=== PATIENT | female | born 1965 | race Hispanic/Latino ===

== ENCOUNTER 2017-05-05 08:08 | Day surgery (SDC) | payer OTHER, BC ==
[2017-05-05 08:21] VITALS: BMI 43.7
[2017-05-05] MEDS ORDERED: Lactated Ringer's 1,000 ML IV ONE ×2 (09:00→14:50)
--- NOTE | 2017-05-05 11:02 | CARD ---
APPROVED REPORT EKG Measurement Heart [id number] CT [id number] <Conclusion> Normal sinus rhythm Normal ECG
[2017-05-05] MEDS ORDERED: MethylPREDNISolone Depo 40 mg/ml Inj ONE (11:19)
[2017-05-05] MEDS ORDERED: Bupivacaine 0.5% Inj(30mL) ONE (11:20)
[2017-05-05] MEDS ORDERED: Lidocaine 1% Inj (20ml) ONE (11:20)
[2017-05-05] MEDS ORDERED: Iohexol 300 10 ML ONE ×2 (11:20→11:22)
[2017-05-05] MEDS ORDERED: Iohexol 300 100 ML IJ ONE (11:23)
[2017-05-05] MEDS ORDERED: Neostigmine 1:1000 (1 mg/ml) Inj ONE (12:34)
[2017-05-05] MEDS ORDERED: Chlorhexidine Gluconate 2OZ GEL TP ONE (12:35)
[2017-05-05] MEDS ORDERED: Lidocaine 4% (Laryng-O-Jet) Kit MM ONE (12:40)
[2017-05-05] MEDS ORDERED: Rocuronium 10 mg/ml (5 ml) ONE (12:40)
[2017-05-05] MEDS ORDERED: Succinylcholine 200 mg/10 ml Inj IV ONE (12:40)
[2017-05-05] MEDS ORDERED: Propofol 10 mg/ml Inj (20 ML) ONE (12:40)
[2017-05-05] MEDS ORDERED: Midazolam 2 MG/2 ML VIAL ONE (12:45)
[2017-05-05] MEDS ORDERED: Dexamethasone 4 mg/1 ml ONE (12:54)
[2017-05-05] MEDS ORDERED: MethylPREDNISolone Depo 40 mg/ml Inj IM ONE (13:15)
[2017-05-05] MEDS ORDERED: Morphine 1 mg/ml preservative-free Inj(Duramorph) IV ONE (13:15)
[2017-05-05] MEDS ORDERED: Iohexol 240 100 ML IJ ONE (13:15)
[2017-05-05] MEDS ORDERED: Bupivacaine 0.5% 50 ML IJ ONE (13:15)
[2017-05-05] MEDS ORDERED: Morphine 1 mg/ml preservative-free Inj(Duramorph) ONE (13:19)
--- NOTE | 2017-05-05 13:24 | RAD ---
HISTORY: preop COMPARISON: No prior. TECHNIQUE: Chest PA and lateral FINDINGS: LUNGS: Minor bibasilar atelectasis PLEURA: No significant pleural effusion identified. No pneumothorax apparent. CARDIOVASCULAR: Normal. OSSEOUS STRUCTURES: Minor multilevel degenerative spondylosis of the thoracic spine VISUALIZED UPPER ABDOMEN: Normal. OTHER FINDINGS: None. IMPRESSION: Minor bibasilar atelectasis
--- NOTE | 2017-05-05 13:25 | CP.SDSHP ---
Same Day Surgery H & P - History Proposed Procedure: Right hip intra-articular steroid injection using flouroscopy under anesthesia Pre-Op Diagnosis: Right hip osteoarthritis - Previous Medical/Surgical History Misc: Other (Lumbar HNP and spinal stenosis, Morbid obesity) Pain: 8.Very Severe Previous Surgical History: ectopic - Allergies Allergies: Allergies No Known Allergies Allergy (Verified 05/05/17 08:21) - Current Medications Current Medications: see med rec - Physical Exam General Appearance: No acute distress Vital Signs: Vital Signs 05/05/17 05/05/17 09:00 09:29 Temperature 97.6 F Pulse Rate 90 90 Respiratory 18 Rate Blood Pressure 153/72 H O2 Sat by Pulse 97 Oximetry Neuro: WNL Heart: WNL Lungs: WNL GI: WNL - {Optional Preform as Required} Abdomen: WNL Integument: WNL Ortho: Other (RLE: Pain with ROM of hip, gross NVI distally, motor 5/5) - Impression Impression: Patient is a 51 y/o female with severe right hip pain which has failed conservative management with NSAID's and PT over the past 3 years. The pain has progressively worsened over the past few months hindering her ADL's, especially walking. The patient is mobidly obese. The decision was made to proceed with an intra-articular steriod injection of the hip for management. Pt. Evaluated Today:Candidate for Anesthesia & Procedure: Yes (Risk/Clayton discussed with pt in detail, she agrees to proceed) - Date & Time Date: 05/05/17 Time: 12:00 Short Stay Discharge - Short Stay Discharge Admitting Diagnosis/Reason for Visit: M25.551 Disposition: HOME/ ROUTINE Referrals: Mati Rao III, MD [Primary Care Provider] -
[2017-05-05] MEDS ORDERED: Lactated Ringer's 500 ML IV ONE (13:32)
[2017-05-05] MEDS: HYDROmorphone 0.5 mg/0.5 ml ISec IVP PRN ×4 (13:35→14:15)
--- NOTE | 2017-05-05 13:35 | PCM.SURG1 ---
Surgeon's Initial Post Op Note - Surgeon's Notes Surgeon: [employer]alen [employer] Repairer: Marj Rudolph Type of Anesthesia: General Endo Anesthesia Administered By: Dr Karlos Espinosa Pre-Operative Diagnosis: Severe hypertrophic O/A R hip. Morbid obesity Operative Findings: hypertrophic O/A R Hip Post-Operative Diagnosis: as above. morbid obesity Operation Performed: Arthrogram r Hip. intraraticular injection R hip. positioning of fluor/interpretation of video Specimen/Specimens Removed: synvial fluid Estimated Blood Loss: EBL {In ML}: 3 Blood Products Given: N/A Drains Used: No Drains Post-Op Condition: Good Date of Surgery/Procedure: 05/05/17 Time of Surgery/Procedure: 13:10 (time in room/anaesthesia indcution time 12:28)
[2017-05-05] MEDS ORDERED: Lactated Ringer's 1,000 ML IV SCH (13:45)
--- NOTE | 2017-05-05 14:43 | RAD ---
PROCEDURE: Intraoperative Fluoroscopy. HISTORY: RT. HIP INJECTION FINDINGS: Fluoroscopic assistance was provided. 34.9 seconds fluoroscopy time utilized during this procedure. Radiation dose = 5.68 mGy. Please refer to the operative report from PRESTON Mendoza.
[2017-05-05 15:23] VITALS: RESP 18
[2017-05-05 16:58] VITALS: BP 128/70; PULSE 73; TEMP 98.2; O2SAT 97
--- NOTE | 2017-05-06 16:59 | OP ---
PROCEDURE DATE: 05/05/2017 LOCATION: [facility]. PREOPERATIVE DIAGNOSES: 1. Severe hypertrophic osteoarthritis of the right hip. 2. Morbid obesity. OPERATIVE FINDINGS: Hypertrophic osteoarthritis of the right hip with flexion contracture and morbid obesity. POSTOPERATIVE DIAGNOSES: 1. Severe hypertrophic osteoarthritis of the right hip. 2. Morbid obesity. SURGEON: Mati Rao MD MEDICAL LAB SCIENTIST: Sidra Newsome, certified registered nursing social media assistant. Completion of the operative goal could not have been achieved without the assistance of Sidra Newsome, certified registered nursing social media assistant. ANESTHESIA: General tracheal anesthesia. OPERATION PERFORMED: 1. Arthrogram right hip. 2. Placement of the arthrography needle. 3. Intra-articular injection of the hip. 4. Manipulation of the right hip under anesthesia. 5. Positioning of fluoroscope interpretation of video images. SPECIMENS REMOVED: Synovial fluid. BLOOD LOSS: Approximately 3 mL. BLOOD PRODUCTS GIVEN: None. DRAINS: No drains. POSTOPERATIVE CONDITION: Stable. TIME IN THE ROOM: 12:28. INCISION TIME: 1310 hours. OPERATIVE INDICATIONS: Taylor Su is a 51-year-old woman who is morbidly obese who presents with severe pain and restricted range of motion of the hip. The patient can no longer withstand the discomfort, total hip replacement is imminent, but a conservative approach consisting of weight loss and intra-articular injection first is discussed. PROCEDURE IN DETAIL: After having obtained informed consent, after the satisfactory induction of general endotracheal anesthesia by Dr. Bangura, after having identified side, site, and procedure and critical pause/time-out, the right lower extremity was prepped and free draped in usual fashion for the intra-articular injection and arthrogram of the right hip. Under the surgeon's direction, the fluoroscope was positioned, video images were generated, therapeutic decisions were made therefrom. The femoral artery was palpated and marked with indelible marker. The pannus was reflected out of the way. The anterior superior iliac spine was identified, and under the surgeon's direction, the fluoroscope was positioned. The hip joint was localized with a radiopaque instrument. The long spinal needle was introduced and is positioned both on AP and frog lateral views. Radiopaque contrast was introduced into the hip joint. Arthrogram having been accomplished, aspiration was accomplished. At this point in time, the position of the needle was found to be acceptable and a solution of Depo-Medrol, Duramorph, and Marcaine was introduced. Again the hip was manipulated under anesthesia. There was found to be evidence of a flexion contracture with marked arthritic change and restricted motion in essentially all planes. Compression dressing was applied. The patient was transferred from the operating table to the stretcher having tolerated the procedure well. Mati Rao MD
== END 2017-05-05 16:40 | disposition home or self-care (01) ==
LOC: H.OPSURG 08:08
PROVIDERS: ATTEND Orthopaedic Surgery
DX: M16.11 Unilateral primary osteoarthritis, right hip (principal); E66.01 Morbid (severe) obesity due to excess calories; G47.33 Obstructive sleep apnea (adult) (pediatric)
CPT/HCPCS: 20610; 27275; 71046; 76000; 93005; J0330; J0690; J1030; J1100; J1170; J1885; J2001; J2250; J2270; J2405; J2704; J2710; J2765; J3010; J7030; J7040; J7120; Q9966; Q9967

== ENCOUNTER 2017-06-23 06:21 | Inpatient (IN) | payer OTHER ==
[2017-06-21 11:46] VITALS: BMI 42.9
[2017-06-23 06:57] LABS: BASO # 0.1 K/uL (0.0-0.2); EOS # 0.1 K/uL (0.0-0.7); EOS % 2.1 % (0.0-4.0); HEMOGLOBIN 14.6 g/dL (12.0-16.0); LYMPH # 1.8 K/uL (1.0-4.3); LYMPH % 29.7 % (20.0-40.0); MEAN CELL VOLUME 95.5 fl (81.0-99.0); MEAN CORPUSCULAR HEMOGLOBIN 32.5 pg (27.0-31.0); MEAN CORPUSCULAR HGB CONC 34.1 g/dL (33.0-37.0); MONO # 0.8 K/uL (0.0-0.8); MONO % 13.2 % (0.0-10.0); NEUT # 3.2 K/uL (1.8-7.0); RBC 4.5 Mil/uL (3.80-5.20); RED CELL DISTRIBUTION WIDTH 12.6 % (11.5-14.5)
[2017-06-23] MEDS ORDERED: Succinylcholine 200 mg/10 ml Inj IV ONE (07:18)
[2017-06-23] MEDS ORDERED: Lidocaine 4% (Laryng-O-Jet) Kit MM ONE (07:18)
[2017-06-23] MEDS ORDERED: Vecuronium 10 mg Inj ONE (07:18)
--- NOTE | 2017-06-23 07:19 | CP.PCM.HP ---
History of Present Illness - History of Present Illness History of Present Illness: Chief Complaint: Right Hip Pain HPI: 51 y/o lady , no significant PMH except for Degenerative Joint and Disc Dis , came in for scheduled Right THR. The patient states that for the past 3 years , she has been having right hip pain w/c progressively worsened. For the Past 1 year , she has been experiencing severe pain requiring almost daily intake of analgesic - Ultram. She went to see Dr Paula and imagings done showed Severe OA . She had Intra-articular injections and Physical therapy however despite these her pain continued. She was then advised surgery. Present on Admission - Present on Admission Any Indicators Present on Admission: No Review of Systems - Review of Systems All systems: reviewed and no additional remarkable complaints except - Constitutional Constitutional: absent: Chills, Fever - EENT Eyes: absent: Change in Vision Ears: absent: Decreased Hearing, Ear Discharge Nose/Mouth/Throat: absent: Epistaxis, Nasal Congestion, Nasal Discharge - Cardiovascular Cardiovascular: absent: Chest Pain, Claudication, Pain Radiating to Arm/Neck/Jaw , Lightheadedness, Orthopnea, Palpitations, Pedal Edema - Respiratory Respiratory: absent: Cough, Dyspnea, Hemoptysis, Dyspnea on Exertion - Gastrointestinal Gastrointestinal: absent: Abdominal Pain, Nausea, Vomiting - Genitourinary Genitourinary: absent: Dysuria, Hematuria, Pyuria, Nocturia - Musculoskeletal Musculoskeletal: Arthralgias, Limited Range of Motion (right hip). absent: Back Pain - Integumentary Integumentary: absent: Pruritus, Rash, Skin Ulcer, Sores - Neurological Neurological: absent: Dizziness, Focal Weakness, Headaches, Loss of Vision, Paresthesias - Endocrine Endocrine: absent: Polydipsia, Polyphagia, Polyuria - Hematologic/Lymphatic Hematologic: absent: Easy Bleeding, Easy Bruising Past Patient History - Infectious Disease Hx of Infectious Diseases: None - Tetanus Immunizations Tetanus Immunization: Unknown - Past Medical History & Family History Past Medical History?: Yes Past Family History: Reviewed and not pertinent - Past Social History Smoking Status: Former Smoker Chewing Tobacco Use: No Cigar Use: No Occupation: works for [employer] Alcohol: None Home Situation {Lives}: With Family - CARDIAC Hx Cardiac Disorders: No - PULMONARY Hx Respiratory Disorders: No - NEUROLOGICAL Hx Neurological Disorder: No - HEENT Hx HEENT Problems: No - RENAL Hx Chronic Kidney Disease: No - ENDOCRINE/METABOLIC Hx Endocrine Disorders: No - HEMATOLOGICAL/ONCOLOGICAL Hx Blood Disorders: No Hx Blood Transfusion Reaction: No - INTEGUMENTARY Hx Dermatological Problems: No - MUSCULOSKELETAL/RHEUMATOLOGICAL Hx Musculoskeletal Disorders: No Hx Arthritis: Yes Hx Degenerative Joint Disease: Yes Hx Herniated Disk: Yes (4) Hx Osteoarthritis: Yes Hx Spinal Stenosis: Yes - GASTROINTESTINAL Hx Gastrointestinal Disorders: Yes Hx Gastritis: Yes - GENITOURINARY/GYNECOLOGICAL Hx Genitourinary Disorders: No - PSYCHIATRIC Hx Psychophysiologic Disorder: No - SURGICAL HISTORY Hx Surgeries: Yes Other/Comment: epidural,ectopic - ANESTHESIA Hx Anesthesia: Yes Hx Anesthesia Reactions: No Hx Malignant Hyperthermia: No Has any member of the family had a problem w/ anesthesia?: No Meds Allergies/Adverse Reactions: Allergies Allergy/AdvReac Type Severity Reaction Status Date / Time No Known Allergies Allergy Verified 06/23/17 06:44 Physical Exam - Constitutional Appears: Well, Non-toxic, No Acute Distress - Head Exam Head Exam: ATRAUMATIC, NORMAL INSPECTION, NORMOCEPHALIC - Eye Exam Eye Exam: EOMI, Normal appearance, PERRL Pupil Exam: NORMAL ACCOMODATION - ENT Exam ENT Exam: Mucous Membranes Moist, Normal External Ear Exam - Neck Exam Neck exam: Positive for: Full Rom. Negative for: Meningismus - Respiratory Exam Respiratory Exam: NORMAL BREATHING PATTERN. absent: Rales, Wheezes, Respiratory Distress - Cardiovascular Exam Cardiovascular Exam: REGULAR RHYTHM, +S1, +S2 - GI/Abdominal Exam GI & Abdominal Exam: Normal Bowel Sounds, Soft. absent: Tenderness - Extremities Exam Extremities exam: Positive for: normal capillary refill, pedal pulses present. Negative for: calf tenderness Additional comments: Pain on ROM of the right Hip - Back Exam Back exam: FULL ROM. absent: CVA tenderness (L), CVA tenderness (R) - Neurological Exam Neurological exam: Alert, CN II-XII Intact, Oriented x3, Reflexes Normal - Psychiatric Exam Psychiatric exam: Normal Affect, Normal Mood - Skin Skin Exam: Dry, Intact, Normal Color, Warm Results - Vital Signs Recent Vital Signs: Last Vital Signs Temp 98 F 06/23/17 07:00 Pulse 87 06/23/17 07:00 Resp BP 137/79 06/23/17 07:00 Pulse Ox 95 06/23/17 07:00 - Labs Result Diagrams: 06/23/17 06:45 Labs: Laboratory Results - last 24 hr 06/23/17 06:45 WBC 6.0 RBC 4.50 Hgb 14.6 Hct 42.9 MCV 95.5 MCH 32.5 H MCHC 34.1 RDW 12.6 Plt Count 259 MPV 9.0 Neut % (Auto) 54.0 Lymph % (Auto) 29.7 Ferry % (Auto) 13.2 H Eos % (Auto) 2.1 Baso % (Auto) 1.0 Neut # (Auto) 3.2 Lymph # (Auto) 1.8 [place]erry # (Auto) 0.8 Eos # (Auto) 0.1 Baso # (Auto) 0.1 Reviewed labs done as outpt - EKG Data EKG Interpreted by: Myself EKG shows normal: Sinus rhythm Rate: Normal Assessment & Plan (1) Primary osteoarthritis of right hip Status: Acute (2) Morbid obesity with BMI of 40.0-44.9, adult Status: Chronic (3) UTI (urinary tract infection) Status: Resolved (4) DVT prophylaxis Status: Acute - Assessment and Plan (Free Text) Assessment: 51 y/o lady with hx of Degen Joint and Disc Disease , came in for scheduled Right THR. Pt has Severe Primary OA of the right hip , and failed outpatient conservative treatment for OA. (1) Primary osteoarthritis of right hip Status: Acute Severe Right hip pain , requiring daily pain meds, pain on ROM, pain on ambulating worseing this past year. Plan for Right THR Ortho: DR Rao Pt medically optimize for the surgery as outpt, low cardiac risk Pain mgt DVT proph post op PT/OT consults (2) Morbid obesity with BMI of 40.0-44.9, adult Status: Chronic (3) UTI (urinary tract infection), treated Status: Resolved pt just completed 1 wk for antibiotic treatment ( cipro) for UTI (4) DVT prophylaxis Status: Acute start Lovenox post op Decision To Admit - Pt Status Changed To: Hospital Disposition Of: Inpatient - Admit Certification Admit to Inpatient:: After my assessment, the patient will require hospitalization for at least two midnights. This is because of the severity of symptoms shown, intensity of services needed, and/or the medical risk in this patient being treated as an outpatient. - . Bed Request Type: Med/Surg Admitting Physician: Rosemary Contreras
[2017-06-23] MEDS ORDERED: Phenylephrine 10 mg/ml Inj ONE (07:21)
[2017-06-23] MEDS ORDERED: Etomidate 20 mg/10ml Inj IV ONE (07:21)
[2017-06-23] MEDS ORDERED: Midazolam 2 MG/2 ML VIAL ONE (07:24)
[2017-06-23] MEDS ORDERED: Morphine 1 mg/ml preservative-free Inj(Duramorph) ONE (07:24)
--- NOTE | 2017-06-23 07:40 | CP.PCM.CON ---
History of Present Illness - History of Present Illness History of Present Illness: Orthopedic consultation Dr. Rao 51F with right hip DJD failed conservative mgmt and elected for THR. PMH: GERD NKDA No hx stents/bleeding or clotting disorder/DVT/seizure disorder Review of Systems - Review of Systems All systems: reviewed and no additional remarkable complaints except - Musculoskeletal Musculoskeletal: As Per HPI (no recent illness) Past Patient History - Past Medical History & Family History Past Medical History?: Yes - Past Social History Smoking Status: Never Smoked - CARDIAC Hx Cardiac Disorders: No - PULMONARY Hx Respiratory Disorders: No - NEUROLOGICAL Hx Neurological Disorder: No - HEENT Hx HEENT Problems: No - RENAL Hx Chronic Kidney Disease: No - ENDOCRINE/METABOLIC Hx Endocrine Disorders: No - HEMATOLOGICAL/ONCOLOGICAL Hx Blood Disorders: No Hx Blood Transfusion Reaction: No - INTEGUMENTARY Hx Dermatological Problems: No - MUSCULOSKELETAL/RHEUMATOLOGICAL Hx Musculoskeletal Disorders: No Hx Herniated Disk: Yes (4) Hx Spinal Stenosis: Yes - GASTROINTESTINAL Hx Gastrointestinal Disorders: Yes Hx Gastritis: Yes - GENITOURINARY/GYNECOLOGICAL Hx Genitourinary Disorders: No - PSYCHIATRIC Hx Psychophysiologic Disorder: No - SURGICAL HISTORY Hx Surgeries: Yes Other/Comment: epidural,ectopic - ANESTHESIA Hx Anesthesia: Yes Hx Anesthesia Reactions: No Hx Malignant Hyperthermia: No Has any member of the family had a problem w/ anesthesia?: No Meds Allergies/Adverse Reactions: Allergies Allergy/AdvReac Type Severity Reaction Status Date / Time No Known Allergies Allergy Verified 06/23/17 06:44 - Medications Medications: Current Medications Tranexamic Acid 1,000 mg/ (Sodium Chloride) 100 mls @ 10 mls/min IVPB STAT STA Stop: 06/23/17 07:14 Physical Exam - Constitutional Appears: Well, No Acute Distress - Respiratory Exam Respiratory Exam: NORMAL BREATHING PATTERN - Extremities Exam Additional comments: calves soft NT neg homans sensation itnact+DP/PT pulses - Expanded Lower Extremities Exam Right Ankle exam: FULL ROM, NORMAL INSPECTION Neuro vacular tendon exam: no vascular compromise - Neurological Exam Neurological exam: Alert, Oriented x3 - Psychiatric Exam Psychiatric exam: Normal Affect, Normal Mood - Skin Skin Exam: Dry, Intact, Normal Color, Warm Results - Vital Signs Recent Vital Signs: Last Vital Signs Temp 98 F 06/23/17 07:00 Pulse 87 06/23/17 07:00 Resp BP 137/79 06/23/17 07:00 Pulse Ox 95 06/23/17 07:00 - Labs Result Diagrams: 06/23/17 06:45 Labs: Laboratory Results - last 24 hr 06/23/17 06/23/17 06:45 06:45 WBC 6.0 RBC 4.50 Hgb 14.6 Hct 42.9 MCV 95.5 MCH 32.5 H MCHC 34.1 RDW 12.6 Plt Count 259 MPV 9.0 Neut % (Auto) 54.0 Lymph % (Auto) 29.7 [place] % (Auto) 13.2 H Eos % (Auto) 2.1 Baso % (Auto) 1.0 Neut # (Auto) 3.2 Lymph # (Auto) 1.8 [place] # (Auto) 0.8 Eos # (Auto) 0.1 Baso # (Auto) 0.1 Crossmatch See Detail BBK History Checked No verified bt Assessment & Plan (1) Primary osteoarthritis of right hip Assessment and Plan: NPO T&S risks/benefits/alt of THR explained to patient who verbalized understanding and consented to procedure d/w Dr. Rao, agrees with above Status: Acute (2) Morbid obesity with BMI of 40.0-44.9, adult Status: Chronic
[2017-06-23] MEDS ORDERED: Bupivacaine HCl 0.5% PF (30 ml) Inj ONE (07:43)
[2017-06-23] MEDS ORDERED: Bupivacaine 0.5% Inj(30mL) ONE (07:44)
[2017-06-23] MEDS ORDERED: Lactated Ringer's 1,000 ML IV ONE ×4 (07:45→16:50)
[2017-06-23] MEDS ORDERED: EPINEPHrine 1 mg/ml (1:1000) Inj ONE (08:50)
[2017-06-23] MEDS ORDERED: Absorbable Gelatin Sponge Size 100 ONE ×2 (08:50→11:28)
[2017-06-23] MEDS ORDERED: Bacitracin Ointment 30 GM TUBE ONE (08:50)
[2017-06-23] MEDS ORDERED: Thrombin Topical 5,000 Int Units Spray Kit ONE ×2 (08:51→11:28)
[2017-06-23] MEDS ORDERED: ePHEDrine 50 mg/ml Inj ONE (08:54)
[2017-06-23] MEDS ORDERED: Sevoflurane - Inhalation Anesthetic Liq (250 ml) ONE (09:54)
[2017-06-23] MEDS ORDERED: Dexamethasone 4 mg/1 ml ONE (10:25)
[2017-06-23] MEDS ORDERED: Absorbable Gelatin Sponge Size 100 TP ONE (11:01)
[2017-06-23] MEDS ORDERED: Thrombin Topical 5,000 Int Units Spray Kit TOP ONE ×2 (11:01)
[2017-06-23] MEDS ORDERED: Lactated Ringer's 1,000 ML IV SCH (13:45)
[2017-06-23] MEDS ORDERED: Lactated Ringer's 500 ML IV ONE (13:50)
--- NOTE | 2017-06-23 13:52 | PCM.SURG1 ---
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 contracture iliopsoas tendon. synovitis R hip Post-Operative Diagnosis: as above Operation Performed: R THR- anterior approach. femoral neck osteotomy. release iliopsoas. autograft/allograft bone graft. computer navigation Specimen/Specimens Removed: bone,tendon,cartilage Estimated Blood Loss: EBL {In ML}: 300 Blood Products Given: N/A Drains Used: No Drains Post-Op Condition: Good Date of Surgery/Procedure: 06/23/17 Time of Surgery/Procedure: 09:05 (time in room 7:50/anesthesia induction time 7: 50)
--- NOTE | 2017-06-23 14:27 | PCM.ANESB3 ---
Femoral Nerve Block - Femoral Nerve Block Date of Procedure: 06/23/17 Anesthesiologist: Sveta Pre-Procedure Diagnosis: Right hip advanced arthritis Post-Procedure Diagnosis: Same Procedure Performed: Femoral Nerve Block Right - Procedure Femoral Nerve Block: The procedure was explained to the patient that it is for the post-operative pain management. Consent was obtained after a thorough discussion with the patient regarding the benefits and possible complications of local anesthetic block of the femoral nerve at the inguinal crease area. The patient was brought to the operating room and standard monitors were applied. Time-out was held with the circulating nurse to confirm the correct surgery and the appropriate block. Under general anesthesia, patient was placed in supine position with fully extended lower extremities and the __right groin exposed. The femoral artery was then carefully palpated. The ultrasound transducer was then applied to this area in the transverse plane and the femoral nerve was visualized lateral to the femoral artery and underneath the fascia iliaca. After thorough identification, the inguinal crease area was prepped with Chloraprep At this point, a #22 gauge Stimuplex 4-inch needle was inserted immediately lateral to the femoral artery pulse at the inguinal crease and advanced perpendicularly. The needle was inserted to the ultrasound transducer in-plane towards the femoral nerve in a [id number] direction. Needle advancement was performed carefully under direct ultrasound visualization. Nerve stimulator was used and twitch of the quadriceps muscle was obtained at current of __0.4___ MA. After negative aspiration, ___2__cc of __0.25___% ___bupivicaine was injected and this was followed with __38____ cc of ___0.25____ % ____ bupivicaine . Under ultrasound guidance the local anesthetics were observed spreading below fascia iliaca around the femoral nerve and laterally towards the lateral femoral cutaneous nerve. The needle was removed intact and sterile dressing was applied. The patient tolerated the femoral nerve block well with stable vital signs and was prepared for emergence.
[2017-06-23] MEDS: HYDROmorphone 0.5 mg/0.5 ml ISec IVP PRN ×4 (14:35→15:20)
--- NOTE | 2017-06-23 15:41 | RAD ---
PROCEDURE: Intraoperative Fluoroscopy. HISTORY: TOTAL HIP FINDINGS: Fluoroscopic assistance was provided.Radiation dose = 9.78 mGy during 51 seconds fluoroscopy time. Please refer to the operative report from PREST[facility] Mendoza.
[2017-06-23] MEDS ORDERED: BSS 15 ML 15 ML IR ONE (15:48)
--- NOTE | 2017-06-23 15:53 | RAD ---
PROCEDURE: Right Hip Radiographs. AP portable views of the pelvis and right hip performed. Study is somewhat limited due to portable technique HISTORY: Status post right DEBBIE COMPARISON: None. FINDINGS: BONES: Patient is status post right total hip arthroplasty. Right femoral component appears properly located within the acetabular component. JOINTS: As above. SOFT TISSUES: Normal. OTHER FINDINGS: None. IMPRESSION: Limited portable views of the pelvis and hips demonstrate right-sided total hip replacement. . The femoral head component appears appropriately located within the acetabular component
[2017-06-23] MEDS ORDERED: ceFAZolin 2 GM in Sodium Chloride 0.9% 100 ML IVPB SCH (17:00)
[2017-06-23] MEDS ORDERED: HYDROmorphone 0.5 mg/0.5 ml ISec IVP PRN (18:30)
[2017-06-23] MEDS: Oxycodone/Acetaminophen 5/325 mg Tab PO PRN ×2 (18:55→22:21)
[2017-06-23] MEDS: ceFAZolin 2 GM in Sodium Chloride 0.9% 100 ML IVPB SCH (21:07)
[2017-06-23] MEDS ORDERED: Oxycodone/Acetaminophen 5/325 mg Tab PO ONE (22:14)
[2017-06-24] MEDS: ceFAZolin 2 GM in Sodium Chloride 0.9% 100 ML IVPB SCH ×2 (01:10→09:31)
[2017-06-24] MEDS: Lactated Ringer's 1,000 ML IV SCH ×2 (01:12→01:13)
[2017-06-24] MEDS: Oxycodone/Acetaminophen 5/325 mg Tab PO PRN ×2 (02:42→06:56)
[2017-06-24 06:24] LABS: BLOOD UREA NITROGEN 17 mg/dl (7-17); CALCIUM 8.4 mg/dL (8.4-10.2); GFR AFRICAN-AMERICAN > 60; GFR NON-AFRICAN AMERICAN > 60
[2017-06-24 06:26] LABS: HEMOGLOBIN 9.8 g/dL (12.0-16.0); MEAN CELL VOLUME 97.2 fl (81.0-99.0); MEAN CORPUSCULAR HEMOGLOBIN 32.8 pg (27.0-31.0); MEAN CORPUSCULAR HGB CONC 33.8 g/dL (33.0-37.0); RBC 2.97 Mil/uL (3.80-5.20); RED CELL DISTRIBUTION WIDTH 12.8 % (11.5-14.5); WHITE BLOOD COUNT 9.8 K/uL (4.8-10.8)
--- NOTE | 2017-06-24 08:48 | CP.PCM.PN ---
Subjective - Date & Time of Evaluation Date of Evaluation: 06/24/17 Time of Evaluation: 07:45 - Subjective Subjective: Patient seen and examined at bedside. 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 Tolerating diet. No acute events overnight. Objective - Vital Signs/Intake and Output Vital Signs (last 24 hours): Temp Pulse Resp BP Pulse Ox 98.1 F 71 20 102/59 L 98 06/24/17 08:21 06/24/17 08:21 06/24/17 08:21 06/24/17 08:21 06/24/17 08:21 - Medications Medications: Current Medications Acetaminophen (Tylenol 325mg Tab) 650 mg PO Q4 PRN PRN Reason: Fever 101 degrees fahrenheit Docusate Sodium (Colace) 100 mg PO BID RENETTA Enoxaparin Sodium (Lovenox) 40 mg SC DAILY [facility] PRN Reason: Protocol Hydromorphone HCl (Dilaudid) 0.5 mg IVP Q4 PRN PRN Reason: Pain, severe (8-10) Lactated Ringer's (Lactated Ringer's) 1,000 mls @ 100 mls/hr IV .Q10H [facility] Last Admin: 06/23/17 23:30 Dose: Not Given Lactated Ringer's (Lactated Ringer's) 1,000 mls @ 100 mls/hr IV .Q10H [facility] Last Admin: 06/24/17 01:13 Dose: 100 mls/hr Cefazolin Sodium 2 gm/ Sodium (Chloride) 100 mls @ 100 mls/hr IVPB Q8 RENETTA PRN Reason: Protocol Stop: 06/24/17 09:59 Last Admin: 06/24/17 01:10 Dose: 100 mls/hr Iron Sucrose 100 mg/ Sodium (Chloride) 105 mls @ 105 mls/hr IVPB DAILY [facility] Stop: 06/26/17 09:59 Ondansetron HCl (Zofran Inj) 4 mg IVP ONCE PRN PRN Reason: Nausea/Vomiting Last Admin: 06/23/17 21:12 Dose: 4 mg Oxycodone HCl (Oxycontin Extended Release Tab) 10 mg PO Q12 [facility] Stop: 06/27/17 09:01 Oxycodone/Acetaminophen (Percocet 5/325 Mg Tab) 1 tab PO Q4 PRN PRN Reason: Pain, moderate (4-7) Stop: 06/26/17 17:45 Last Admin: 06/24/17 06:56 Dose: 1 tab Pneumococcal Polyvalent Vaccine (Pneumovax 23 Vaccine) 0.5 ml IM .ONCE ONE Stop: 06/24/17 09:01 - Labs Labs: 06/24/17 05:55 06/24/17 05:55 - Extremities Exam Additional comments: R hip: [place] dressing CDI, ABD pillow in place, mild swelling, mod tenderness sensation intact SP/DP/TN motor intact EHL/FHL/TA/G pedal pulses intact comp soft/NT Assessment and Plan (1) Primary osteoarthritis of right hip Assessment & Plan: POD#1 s/p R DEBBIE anterior approach -Pain: will d/c 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 Rao in agreement Status: Acute
[2017-06-24] MEDS ORDERED: Pneumococcal 23-Valent Vaccine IM ONE (09:00)
[2017-06-24] MEDS ORDERED: oxyCODONE 5 mg Immediate Release Tab PO PRN (09:27)
[2017-06-24] MEDS: Enoxaparin 40 mg Syringe SC SCH (09:31)
[2017-06-24] MEDS: oxyCODONE 10 mg ER Tab (oxyCONTIN) PO SCH ×2 (09:32→20:53)
--- NOTE | 2017-06-24 11:04 | CP.PCM.PN ---
Subjective - Date & Time of Evaluation Date of Evaluation: 06/24/17 Time of Evaluation: 11:00 - Subjective Subjective: no fever Pain controlled Has [place]OL[place] drain in place sl itch left eye no denies CP no SOB no abd pain Objective - Vital Signs/Intake and Output Vital Signs (last 24 hours): Temp Pulse Resp BP Pulse Ox 98.1 F 71 20 102/59 L 98 06/24/17 08:21 06/24/17 08:21 06/24/17 08:21 06/24/17 08:21 06/24/17 08:21 - Medications Medications: Current Medications Acetaminophen (Tylenol 325mg Tab) 650 mg PO Q4 PRN PRN Reason: Fever 101 degrees fahrenheit Acetaminophen (Tylenol 325mg Tab) 975 mg PO Q6 [facility] Stop: 06/25/17 10:01 Docusate Sodium (Colace) 100 mg PO BID [facility] Last Admin: 06/24/17 09:31 Dose: 100 mg Enoxaparin Sodium (Lovenox) 40 mg SC DAILY [facility] PRN Reason: Protocol Last Admin: 06/24/17 09:31 Dose: 40 mg Lactated Ringer's (Lactated Ringer's) 1,000 mls @ 100 mls/hr IV .Q10H [facility] Last Admin: 06/23/17 23:30 Dose: Not Given Lactated Ringer's (Lactated Ringer's) 1,000 mls @ 100 mls/hr IV .Q10H [facility] Last Admin: 06/24/17 01:13 Dose: 100 mls/hr Iron Sucrose 100 mg/ Sodium (Chloride) 105 mls @ 105 mls/hr IVPB DAILY [facility] Stop: 06/26/17 09:59 Last Admin: 06/24/17 09:33 Dose: 105 mls/hr Ondansetron HCl (Zofran Inj) 4 mg IVP ONCE PRN PRN Reason: Nausea/Vomiting Last Admin: 06/23/17 21:12 Dose: 4 mg Oxycodone HCl (Oxycontin Extended Release Tab) 10 mg PO Q12 [facility] Stop: 06/27/17 09:01 Last Admin: 06/24/17 09:32 Dose: 10 mg Oxycodone HCl (Oxycodone Immediate Release Tab) 5 mg PO Q4 PRN PRN Reason: Pain, moderate (4-7) Oxycodone HCl (Oxycodone Immediate Release Tab) 10 mg PO Q4 PRN PRN Reason: Pain, severe (8-10) - Labs Labs: 06/24/17 05:55 06/24/17 05:55 - Constitutional Appears: Non-toxic, No Acute Distress - Head Exam Head Exam: ATRAUMATIC, NORMAL INSPECTION, NORMOCEPHALIC - Eye Exam Eye Exam: EOMI, Normal appearance, PERRL Pupil Exam: NORMAL ACCOMODATION - ENT Exam ENT Exam: Mucous Membranes Moist, Normal External Ear Exam - Neck Exam Neck Exam: Full ROM. absent: Meningismus - Respiratory Exam Respiratory Exam: NORMAL BREATHING PATTERN. absent: Respiratory Distress - Cardiovascular Exam Cardiovascular Exam: REGULAR RHYTHM, +S1, +S2 - GI/Abdominal Exam GI & Abdominal Exam: Soft, Normal Bowel Sounds. absent: Tenderness - Extremities Exam Extremities Exam: Normal Capillary Refill. absent: Calf Tenderness Additional comments: right Hip with dressing and CAROLINA drain - Back Exam Back Exam: Full ROM. absent: CVA tenderness (L), CVA tenderness (R) - Neurological Exam Neurological Exam: Alert, Awake, CN II-XII Intact, Normal Gait, Oriented x3 Neuro motor strength exam: Left Upper Extremity: 5, Right Upper Extremity: 5, Left Lower Extremity: 5, Right Lower Extremity: 5 - Psychiatric Exam Psychiatric exam: Normal Affect, Normal Mood - Skin Skin Exam: Dry, Normal Color, Warm Assessment and Plan (1) Primary osteoarthritis of right hip Status: Acute (2) Morbid obesity with BMI of 40.0-44.9, adult Status: Chronic (3) UTI (urinary tract infection) Status: Resolved (4) DVT prophylaxis Status: Acute - Assessment and Plan (Free Text) Assessment: 51 y/o lady with hx of Degen Joint and Disc Disease , came in for scheduled Right THR. Pt has Severe Primary OA of the right hip , and failed outpatient conservative treatment for OA. (1) Primary osteoarthritis of right hip s/p THR Status: Acute Severe Right hip pain , requiring daily pain meds, pain on ROM, pain on ambulating worsening this past year. 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
[2017-06-24] MEDS: Artificial Tears Opht Soln OU PRN ×2 (11:20→20:56)
[2017-06-24] MEDS: oxyCODONE 10 mg Immediate Release Tab PO PRN ×2 (11:42→16:36)
--- NOTE | 2017-06-24 12:02 | OP ---
PROCEDURE DATE: 06/23/2017 PREOPERATIVE DIAGNOSES: Severe osteoarthritis of the right hip with acetabular deformity. POSTOPERATIVE DIAGNOSES: Severe osteoarthritis of the right hip with acetabular deformity. PROCEDURE PERFORMED: 1. Right total hip replacement arthroplasty. 2. Femoral neck osteotomy. 3. Release of iliopsoas tendon. 4. Autograft, allograft and bone graft to the acetabulum. 5. Computer navigation. SURGEON: Mati Rao MD BUILDING MECHANIC: Sidra Newsome, certified registered nursing desk assistant. SECOND PENSION MANAGER: Ashok Cyr PA-C. SPECIMENS REMOVED: Bone tendon and cartilage. ESTIMATED BLOOD LOSS: Approximately 300 mL. BLOOD PRODUCTS: No blood products given. DRAINS: One CAROLINA drain. POSTOPERATIVE CONDITION: Good. DATE OF SURGERY: 06/23/2017 TIME SEEN: Time in the room 7:50 and anesthesia incision time 9:05. OPERATIVE INDICATION: Taylor Su is a 51-year-old woman who has severe pain and restricted range of motion of the right hip. The patient has failed intra-articular injection. The patient now presents for definitive replacement arthroplasty. Pros, cons, risks and benefits of anterior and posterior approach of hip replacement are discussed. The patient's BMI is 42, she is on the baseline, but she and her , Markus are very interested in the approach anteriorly and we will accomplish the same. Possibility of mechanical failure, infection, component malposition, thromboembolic disease, nerve injury, leg-length inequality, secondary or tertiary surgery was discussed. It should be noted that the patient had initially a preoperative leg-length inequality, right worse than left to approximately 1 inch right shorter than the left. Again the possibility of mechanical failure, infection, thromboembolic disease, secondary or tertiary surgery had been discussed. OPERATIVE PROCEDURE: After having obtained informed consent, after the satisfactory induction of spinal and general anesthesia by Dr. Bangura, after having identified the side, site and procedure and a critical pause/time-out, the patient identified as Taylor Su in the supine position. The patient was placed in the AMIS traction. The pannus was reflected, great care was taken and all bony prominences were well padded. After the satisfactory induction of the spinal and general anesthesia and after having obtained informed consent under the surgeon's direction, the fluoroscope was positioned, video images were generated, therapeutic decisions were made therefrom. Again after having positioned the patient in the AMIS traction positioner with all bony prominences well padded and under the surgeon's direction, the fluoroscope was positioned, video images were generated, and therapeutic decisions were made therefrom. This having been accomplished, verification of position was offered on image intensification views. This having been accomplished, after sterilely prepping and draping, an incision was described one fingerbreadth 1 cm distal to the ASIS and 3 cm posteriorly. The incision was described superficial to the tensor fascia femoris muscle. The skin incision was carried down through the skin and subcutaneous tissue. The fascia on the tensor fascia femoris muscle was divided. The tensor was taken down from the investing fascia. The Medacta modified, Adson-Davina retractor was placed and the posterior aspect of the rectus femoris was identified. Hemostasis was controlled with the Aquamantys. This having been accomplished, deep to the posterior aspect of the rectus was developed and the Adson-Davina was placed horizontal into superficial to the hip joint and the fascia was divided. At this point in time, the patient was very well muscled side from her very high 44 BMI. With internal rotation of the hip, the fat pads superficial to the rectus femoris was excised and the rectus femoris was released and that having been accomplished, the capsulotomy was accomplished extending laterally with the hip in internal rotation. The Cobra retractor was placed and the capsulotomy begins, it was carried distal to the area of the intertrochanteric tubercle, this was elevated and the capsular flap was tagged. Hemostasis was controlled. This having been accomplished with rotation, the femoral neck osteotomy was accomplished at the saddle and because of the leg length inequality, the cut was very well planned. The femoral neck osteotomy was critical in this case and extra planning was accomplished both preoperatively and intraoperatively. Computer navigation was at this point in time employed. This having been accomplished, computer navigation with accelerometer technology was employed. Femoral neck osteotomy was accomplished. Femoral neck osteotomy was completed and at this point in time, the corkscrew was placed into the neck with 45 degrees of external rotation of the femur and the head was removed from the acetabulum. This having been accomplished, the wound was thoroughly irrigated. The Medacta Hohmann retractors were placed and preparation was made for the acetabulum, reflected head of rectus femoris having been released, and the labrum was excised. The pulvinar was controlled with the Aquamantys for hemostasis. This having been accomplished, the pulvinar was excised and retractors were placed. The patient does have some anterior wall deficiency, this acetabular deformity was noted. This having been accomplished, the reaming was carried out to 54 mm with the hip in abduction and appropriate anteversion. A bit more abduction was employed because of the patient's girth. This having been accomplished, the acetabulum was prepared for the 54 dual mobility cup, the dual mobility was not satisfactory, again because the anterior acetabular wall deficiency. At this point in time, the reaming commences for 56, a 56 mm cup, after extensive preparation approximately 45 minutes of acetabular preparation was accomplished. Autograft and bone grafting was accomplished with the graft denuded of articular cartilage, the autograft was employed and the acetabulum was packed, the cup was introduced. At this point in time, two additional fixation screws were employed, drilling was accomplished with the flexible drill bit, followed by sounding with the depth gauge and the appropriate size screws were placed both anteriorly and superiorly. The fixation was found to be excellent, cup was found to be stable. At this point in time, the hooded acetabular polyethylene was introduced and this was found to be excellent. The cup was found to be stable and the position was found to be with the addition of the 15-mm lipped polyethylene was found to be within the safe zone. This having been accomplished, it should be noted that the two incisions were made in the iliac crest, pins were used to support the optical camera for the optical based accelerometer computer navigation. This having been accomplished, the cup was positioned and verification was accomplished. The plane of the pelvis was registered, the ASIS both on the left and the right was found and registered and this having been accomplished, the position was found to be acceptable. Navigation having been accomplished, screws were removed, the camera was removed and at this point in time, the femur was developed, external rotation of the femur was employed. The pubofemoral ligament was released, the ischiofemoral ligament, the piriformis fossa was carefully developed and the iliofemoral ligament was released as well from the border of the trochanter to 1 cm posterior to the acetabulum. Hemostasis again was controlled with the Aquamantys. The femur was mobilized with external rotation, hyperflexion of the femur was carried out, the bridge of bone between the neck and the trochanter was removed, the box chisel was removed and the canal was found. The canal was carefully sound and this was found to be extremely tight champagne type, Irma type A bone. This having been accomplished, the broaching was accomplished to a number 1 femoral component. Trialing was accomplished with a 3.5-mm 32 mm head. The hip was reduced and found to be stable in all planes. At this point in time, the broach was removed, the appropriate size femoral stem was introduced +3.5 neck, 32 mm head, the hip was reduced and found to be stable in all planes. The wound was thoroughly irrigated. The hip having found to be stable, it should be noted that prior to reduction of the hip, autograft, bone grafting was accomplished of the proximal femur as well with the reamings from the acetabulum which were denuded of articular cartilage. The hip was reduced and found to be stable in all planes. The hip was stable in flexion, internal and external rotation. There was no push-pull and leg length was found to be essentially equal. Closure was after hemostasis controlled. Thrombin and Gelfoam was employed. It should be noted that tranexamic acid was employed 2 gm and closure of the fascia with Quill followed by Vicryl, followed by katia for skin. The CAROLINA dressing and drain was employed. Compression with Serg bandage was employed. Verification of position again was offered on image intensification views in various planes, position was found to be acceptable. Compression dressing having been applied, CAROLINA drain having been applied and CAROLINA dressing having been applied. technical administrative assistant, Sidra Newsome and second maintenance assistant Ashok Cyr, it should be noted that the operative goal could not have been completed without the assistance of these assistants. Mati Rao MD
[2017-06-25] MEDS: oxyCODONE 10 mg Immediate Release Tab PO PRN ×2 (02:48→06:15)
--- NOTE | 2017-06-25 08:19 | CP.PCM.PN ---
Subjective - Date & Time of Evaluation Date of Evaluation: 06/25/17 Time of Evaluation: 08:17 - Subjective Subjective: pt comfortable doing well pain controlled HD stable NAD Objective - Vital Signs/Intake and Output Vital Signs (last 24 hours): Temp Pulse Resp BP Pulse Ox 99.3 F 92 H 18 112/69 97 06/25/17 07:57 06/25/17 07:57 06/25/17 07:57 06/25/17 07:57 06/25/17 07:57 - Medications Medications: Current Medications Acetaminophen (Tylenol 325mg Tab) 650 mg PO Q4 PRN PRN Reason: Fever 101 degrees fahrenheit Last Admin: 06/25/17 00:04 Dose: 650 mg Acetaminophen (Tylenol 325mg Tab) 975 mg PO Q6 [facility] Stop: 06/25/17 10:01 Last Admin: 06/25/17 05:00 Dose: 975 mg Artificial Tears (Artificial Tears) 2 drop OU Q4 PRN PRN Reason: Dry eyes Last Admin: 06/24/17 20:56 Dose: 2 drop Docusate Sodium (Colace) 100 mg PO BID [facility] Last Admin: 06/24/17 18:34 Dose: 100 mg Enoxaparin Sodium (Lovenox) 40 mg SC DAILY [facility] PRN Reason: Protocol Last Admin: 06/24/17 09:31 Dose: 40 mg Lactated Ringer's (Lactated Ringer's) 1,000 mls @ 100 mls/hr IV .Q10H [facility] Last Admin: 06/23/17 23:30 Dose: Not Given Lactated Ringer's (Lactated Ringer's) 1,000 mls @ 100 mls/hr IV .Q10H [facility] Last Admin: 06/24/17 01:13 Dose: 100 mls/hr Iron Sucrose 100 mg/ Sodium (Chloride) 105 mls @ 105 mls/hr IVPB DAILY [facility] Stop: 06/26/17 09:59 Last Admin: 06/24/17 09:33 Dose: 105 mls/hr Ondansetron HCl (Zofran Inj) 4 mg IVP ONCE PRN PRN Reason: Nausea/Vomiting Last Admin: 06/23/17 21:12 Dose: 4 mg Oxycodone HCl (Oxycontin Extended Release Tab) 10 mg PO Q12 [facility] Stop: 06/27/17 09:01 Last Admin: 06/24/17 20:53 Dose: 10 mg Oxycodone HCl (Oxycodone Immediate Release Tab) 5 mg PO Q4 PRN PRN Reason: Pain, moderate (4-7) Oxycodone HCl (Oxycodone Immediate Release Tab) 10 mg PO Q4 PRN PRN Reason: Pain, severe (8-10) Last Admin: 06/25/17 06:15 Dose: 10 mg - Labs Labs: 06/24/17 05:55 06/24/17 05:55 - Constitutional Appears: Non-toxic, No Acute Distress - Head Exam Head Exam: ATRAUMATIC, NORMOCEPHALIC - Eye Exam Eye Exam: EOMI, Normal appearance, PERRL - ENT Exam ENT Exam: Mucous Membranes Moist, Normal Oropharynx - Respiratory Exam Respiratory Exam: Clear to Ausculation Bilateral, NORMAL BREATHING PATTERN - Cardiovascular Exam Cardiovascular Exam: RRR, +S1, +S2 - GI/Abdominal Exam GI & Abdominal Exam: Soft, Normal Bowel Sounds - Extremities Exam Extremities Exam: Normal Capillary Refill. absent: Full ROM - Back Exam Back Exam: absent: CVA tenderness (L), CVA tenderness (R) - Neurological Exam Neurological Exam: Alert, Awake - Psychiatric Exam Psychiatric exam: Normal Affect, Normal Mood - Skin Skin Exam: Dry, Warm Assessment and Plan - Assessment and Plan (Free Text) Plan: 51 y/o lady with hx of Degen Joint and Disc Disease , came in for scheduled Right THR. Pt has Severe Primary OA of the right hip , and failed outpatient conservative treatment for OA. (1) Primary osteoarthritis of right hip s/p THR Status: Acute Severe Right hip pain , requiring daily pain meds, pain on ROM, pain on ambulating worsening this past year. 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
[2017-06-25] MEDS: Enoxaparin 40 mg Syringe SC SCH (08:49)
[2017-06-25] MEDS: oxyCODONE 10 mg ER Tab (oxyCONTIN) PO SCH ×2 (08:54→09:18)
[2017-06-25 08:59] LABS: HEMOGLOBIN 8.9 g/dL (12.0-16.0); MEAN CELL VOLUME 98.1 fl (81.0-99.0); MEAN CORPUSCULAR HEMOGLOBIN 33.1 pg (27.0-31.0); MEAN CORPUSCULAR HGB CONC 33.8 g/dL (33.0-37.0); RBC 2.69 Mil/uL (3.80-5.20); RED CELL DISTRIBUTION WIDTH 13.2 % (11.5-14.5); WHITE BLOOD COUNT 10.5 K/uL (4.8-10.8)
[2017-06-25 09:33] LABS: BLOOD UREA NITROGEN 11 mg/dl (7-17); CALCIUM 7.9 mg/dL (8.4-10.2); GFR AFRICAN-AMERICAN > 60; GFR NON-AFRICAN AMERICAN > 60
--- NOTE | 2017-06-25 10:00 | CP.PCM.PN ---
Subjective - Date & Time of Evaluation Date of Evaluation: 06/25/17 Time of Evaluation: 09:57 - Subjective Subjective: Patient lethargic, able to be aroused, but is very drowsy and falls right back asleep. No new complaints. Objective - Vital Signs/Intake and Output Vital Signs (last 24 hours): Temp Pulse Resp BP Pulse Ox 99.3 F 92 H 18 112/69 97 06/25/17 07:57 06/25/17 07:57 06/25/17 07:57 06/25/17 07:57 06/25/17 07:57 - Medications Medications: Current Medications Acetaminophen (Tylenol 325mg Tab) 650 mg PO Q4 PRN PRN Reason: Fever 101 degrees fahrenheit Last Admin: 06/25/17 00:04 Dose: 650 mg Acetaminophen (Tylenol 325mg Tab) 975 mg PO Q6 [facility] Stop: 06/25/17 10:01 Last Admin: 06/25/17 09:37 Dose: 975 mg Artificial Tears (Artificial Tears) 2 drop OU Q4 PRN PRN Reason: Dry eyes Last Admin: 06/24/17 20:56 Dose: 2 drop Docusate Sodium (Colace) 100 mg PO BID [facility] Last Admin: 06/25/17 08:49 Dose: 100 mg Enoxaparin Sodium (Lovenox) 40 mg SC DAILY [facility] PRN Reason: Protocol Last Admin: 06/25/17 08:49 Dose: 40 mg Lactated Ringer's (Lactated Ringer's) 1,000 mls @ 100 mls/hr IV .Q10H [facility] Last Admin: 06/23/17 23:30 Dose: Not Given Lactated Ringer's (Lactated Ringer's) 1,000 mls @ 100 mls/hr IV .Q10H [facility] Last Admin: 06/24/17 01:13 Dose: 100 mls/hr Iron Sucrose 100 mg/ Sodium (Chloride) 105 mls @ 105 mls/hr IVPB DAILY [facility] Stop: 06/26/17 09:59 Last Admin: 06/25/17 08:48 Dose: 105 mls/hr Ketorolac Tromethamine (Toradol) 30 mg IVP Q6 PRN PRN Reason: Pain, moderate (4-7) Ondansetron HCl (Zofran Inj) 4 mg IVP ONCE PRN PRN Reason: Nausea/Vomiting Last Admin: 06/23/17 21:12 Dose: 4 mg Oxycodone HCl (Oxycodone Immediate Release Tab) 5 mg PO Q4 PRN PRN Reason: Pain, moderate (4-7) - Labs Labs: 06/25/17 08:54 06/25/17 08:54 - Extremities Exam Additional comments: right hip: dressing intact, scant sang drainage on dressing, under suction, + ROM ankle/toes, sensation intact c song soft NT neg homans Assessment and Plan (1) Primary osteoarthritis of right hip Assessment & Plan: POD#2 s/p right THR patient sedated, likely from pain medication. last oxycontin last night, and 10mg oxycodone this am 6am. D/c long acting oxycontin, d/c 10mg oxycodone at this time. Will continue with 5mg oxycodone, continue around the clock tylenol, and add toradol IV prn moderate pain and continue to monitor. cont VTE proph, cont PT/OT ortho stable If patient for transfer to rehab, CAROLINA dressing can stay intact until POD#7 and then change to dry sterile dressing. tmax 102 over night, encourage IS and out of bed d/w Dr. Rao, agrees with above Status: Acute (2) Morbid obesity with BMI of 40.0-44.9, adult Status: Chronic
[2017-06-25 15:52] VITALS: BP 135/76; PULSE 110; RESP 19
[2017-06-25 16:07] VITALS: O2SAT 95
--- NOTE | 2017-06-25 17:08 | CP.PCM.DIS ---
Provider - Provider Date of Admission: 06/23/17 13:42 Attending physician: Mati Rao III, MD Primary care physician: Mati Rao III, MD Time Spent in preparation of Discharge (in minutes): 30 Diagnosis - Discharge Diagnosis (1) DVT prophylaxis Status: Acute (2) Primary osteoarthritis of right hip Status: Acute (3) Morbid obesity with BMI of 40.0-44.9, adult Status: Chronic (4) UTI (urinary tract infection) Status: Resolved Hospital Course - Lab Results Lab Results: Most Recent Lab Values WBC 10.5 K/uL (4.8-10.8) 06/25/17 08:54 RBC 2.69 Mil/uL (3.80-5.20) L 06/25/17 08:54 Hgb 8.9 g/dL (12.0-16.0) L 06/25/17 08:54 Hct 26.4 % (34.0-47.0) L 06/25/17 08:54 MCV 98.1 fl (81.0-99.0) 06/25/17 08:54 MCH 33.1 pg (27.0-31.0) H 06/25/17 08:54 MCHC 33.8 g/dL (33.0-37.0) 06/25/17 08:54 RDW 13.2 % (11.5-14.5) 06/25/17 08:54 Plt Count 177 K/uL (130-400) 06/25/17 08:54 MPV 9.0 fl (7.2-11.7) 06/23/17 06:45 Neut % (Auto) 54.0 % (50.0-75.0) 06/23/17 06:45 Lymph % (Auto) 29.7 % (20.0-40.0) 06/23/17 06:45 [place] % (Auto) 13.2 % (0.0-10.0) H 06/23/17 06:45 Eos % (Auto) 2.1 % (0.0-4.0) 06/23/17 06:45 Baso % (Auto) 1.0 % (0.0-2.0) 06/23/17 06:45 Neut # (Auto) 3.2 K/uL (1.8-7.0) 06/23/17 06:45 Lymph # (Auto) 1.8 K/uL (1.0-4.3) 06/23/17 06:45 [place] # (Auto) 0.8 K/uL (0.0-0.8) 06/23/17 06:45 Eos # (Auto) 0.1 K/uL (0.0-0.7) 06/23/17 06:45 Baso # (Auto) 0.1 K/uL (0.0-0.2) 06/23/17 06:45 Sodium 136 mmol/l (132-148) 06/25/17 08:54 Potassium 3.8 MMOL/L (3.6-5.0) 06/25/17 08:54 Chloride 99 mmol/L (98-107) 06/25/17 08:54 Carbon Dioxide 27 mmol/L (22-30) 06/25/17 08:54 Anion Gap 14 (10-20) 06/25/17 08:54 BUN 11 mg/dl (7-17) 06/25/17 08:54 Creatinine 0.7 mg/dl (0.7-1.2) 06/25/17 08:54 Est GFR ( Amer) > 60 06/25/17 08:54 Est GFR (Non-Af Amer) > 60 06/25/17 08:54 Random Glucose 94 mg/dL (65-105) 06/25/17 08:54 Calcium 7.9 mg/dL (8.4-10.2) L 06/25/17 08:54 25-OH Vitamin D Total < 12.8 NG/ML (30.0-100.0) L 06/25/17 05:29 Blood Type O POSITIVE 06/23/17 06:45 Blood Type Confirm O POSITIVE 06/23/17 07:25 Antibody Screen Negative 06/23/17 06:45 Crossmatch See Detail 06/23/17 06:45 BBK History Checked No verified bt 06/23/17 06:45 - Hospital Course Hospital Course: 51 y/o lady with hx of Degen Joint and Disc Disease , came in for scheduled Right THR. Pt has Severe Primary OA of the right hip , and failed outpatient conservative treatment for OA. Transferred to TCU for further rehab. (1) Primary osteoarthritis of right hip s/p THR Status: Acute Severe Right hip pain , requiring daily pain meds, pain on ROM, pain on ambulating worsening this past year. 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 DVT proph post op PT/OT consult (2) Morbid obesity with BMI of 40.0-44.9, adult Status: Chronic (3) UTI (urinary tract infection), treated Status: Resolved completed 1 wk antibiotic treatment ( cipro) for UTI (4) Mild acute blood loss anemia - started venofer yesterday DVT prophylaxis Status: Acute Lovenox Discharge Exam - Head Exam Head Exam: ATRAUMATIC, NORMOCEPHALIC - Eye Exam Eye Exam: EOMI, Normal appearance, PERRL Pupil Exam: NORMAL ACCOMODATION - ENT Exam ENT Exam: Mucous Membranes Moist, Normal Oropharynx - Respiratory Exam Respiratory Exam: Clear to PA & Lateral, NORMAL BREATHING PATTERN - Cardiovascular Exam Cardiovascular Exam: RRR, +S1, +S2 - GI/Abdominal Exam GI & Abdominal Exam: Normal Bowel Sounds, Unremarkable - Extremities Exam Extremities exam: normal capillary refill, pedal pulses present - Back Exam Back exam: absent: CVA tenderness (L), CVA tenderness (R) - Neurological Exam Neurological exam: Alert, Reflexes Normal - Psychiatric Exam Psychiatric exam: Normal Affect, Normal Mood - Skin Skin Exam: Dry, Warm Discharge Plan - Follow Up Plan Condition: GOOD Disposition: HOME/ ROUTINE Referrals: Mati Rao III, MD [Primary Care Provider] -
[2017-06-25 17:20] VITALS: TEMP 99.2
== END 2017-06-25 17:55 | DRG 470 ==
LOC: H.OPSURG 06:21 → H.MEDSURG1 13:42
PROVIDERS: ADMIT Internal Medicine; ATTEND Orthopaedic Surgery
PROC: 3E0T33Z Introduction of Anti-inflammatory into Peripheral Nerves and Plexi, Percutaneous Approach (ICD-10-PCS; 2017-06-23)
PROC: 0SR90JZ Replacement of Right Hip Joint with Synthetic Substitute, Open Approach (ICD-10-PCS; principal; 2017-06-23 07:45)
PROC: 3E0T3BZ Introduction of Anesthetic Agent into Peripheral Nerves and Plexi, Percutaneous Approach (ICD-10-PCS; 2017-06-23 07:45)
PROC: 3E0234Z Introduction of Serum, Toxoid and Vaccine into Muscle, Percutaneous Approach (ICD-10-PCS; 2017-06-24)
DX: M16.11 Unilateral primary osteoarthritis, right hip (principal); N39.0 Urinary tract infection, site not specified; D62 Acute posthemorrhagic anemia; Z68.41 Body mass index [BMI] 40.0-44.9, adult; E66.01 Morbid (severe) obesity due to excess calories; Z23 Encounter for immunization; Z87.891 Personal history of nicotine dependence

== ENCOUNTER 2017-06-25 17:38 | Inpatient (IN) | payer OTHER ==
[2017-06-21 11:46] VITALS: BMI 42.9
[2017-06-25] MEDS ORDERED: Artificial Tears Opht Soln OU PRN (18:19)
[2017-06-25] MEDS: oxyCODONE 5 mg Immediate Release Tab PO PRN ×2 (19:37→23:32)
[2017-06-26] MEDS: oxyCODONE 5 mg Immediate Release Tab PO PRN ×4 (03:47→23:55)
[2017-06-26] MEDS: Enoxaparin 40 mg Syringe SC SCH (09:02)
--- NOTE | 2017-06-26 10:46 | CP.PCM.CON ---
History of Present Illness - History of Present Illness History of Present Illness: ID 51 yo female(high BMI)-now s/p R THR CC: pt markedly imporoved from preop status;minimal post op discomfort Past Patient History - Infectious Disease Hx of Infectious Diseases: None - Tetanus Immunizations Tetanus Immunization: Unknown - Past Medical History & Family History Past Medical History?: Yes - Past Social History Smoking Status: Former Smoker - CARDIAC Hx Cardiac Disorders: No - PULMONARY Hx Respiratory Disorders: No - NEUROLOGICAL Hx Neurological Disorder: No - HEENT Hx HEENT Problems: No - RENAL Hx Chronic Kidney Disease: No - ENDOCRINE/METABOLIC Hx Endocrine Disorders: No - HEMATOLOGICAL/ONCOLOGICAL Hx Blood Disorders: No Hx Blood Transfusion Reaction: No - INTEGUMENTARY Hx Dermatological Problems: No - MUSCULOSKELETAL/RHEUMATOLOGICAL Hx Musculoskeletal Disorders: No Hx Arthritis: Yes Hx Degenerative Joint Disease: Yes Hx Falls: No Hx Herniated Disk: Yes (4) Hx Osteoarthritis: Yes Hx Spinal Stenosis: Yes - GASTROINTESTINAL Hx Gastrointestinal Disorders: Yes Hx Gastritis: Yes - GENITOURINARY/GYNECOLOGICAL Hx Genitourinary Disorders: No - PSYCHIATRIC Hx Psychophysiologic Disorder: No - SURGICAL HISTORY Hx Surgeries: Yes Other/Comment: epidural,ectopic . Rhip inj 04/2017 - ANESTHESIA Hx Anesthesia: Yes Hx Anesthesia Reactions: No Hx Malignant Hyperthermia: No Meds Allergies/Adverse Reactions: Allergies Allergy/AdvReac Type Severity Reaction Status Date / Time No Known Allergies Allergy Verified 06/25/17 17:59 - Medications Medications: Current Medications Acetaminophen (Tylenol 325mg Tab) 650 mg PO Q4 PRN PRN Reason: Fever >100.4 F Artificial Tears (Artificial Tears) 2 drop OU Q4 PRN PRN Reason: Dry eyes Docusate Sodium (Colace) 100 mg PO BID [facility] Last Admin: 06/26/17 09:01 Dose: 100 mg Enoxaparin Sodium (Lovenox) 40 mg SC DAILY [facility] PRN Reason: Protocol Last Admin: 06/26/17 09:02 Dose: 40 mg Oxycodone HCl (Oxycodone Immediate Release Tab) 5 mg PO Q4 PRN PRN Reason: Pain, moderate (4-7) Last Admin: 06/26/17 03:47 Dose: 5 mg Physical Exam - Additional Findings Additional findings: Systemic exam: Heent- wnl pt with BMI>43 remainder of systemic- wnl Muscuolskeletal stance/gait- defrred ROM R hip with decreased tenderness R hip wouind benign Results - Vital Signs Recent Vital Signs: Last Vital Signs Temp 98.1 F 06/26/17 08:13 Pulse 99 H 06/26/17 08:13 Resp 20 06/26/17 08:13 BP 129/64 06/26/17 08:13 Pulse Ox 85 L 06/26/17 08:13 Assessment & Plan - Assessment and Plan (Free Text) Assessment: A- s/p R THR P- excellent progress;orthopedically stable physion- strict toe touch weight bearing with walker
--- NOTE | 2017-06-26 13:26 | CP.PCM.HP ---
History of Present Illness - History of Present Illness History of Present Illness: 51 yo female with no significant PMH aside fro OA had right THR on 06/23/2017 after failing conservative management. Patient did well post op and was transferred to TCU for continuation of rehabilitation. Present on Admission - Present on Admission Any Indicators Present on Admission: No History of DVT/PE: No History of Uncontrolled Diabetes: No Urinary Catheter: No Decubitus Ulcer Present: No Review of Systems - Review of Systems All systems: reviewed and no additional remarkable complaints except (aside from those mentioned above, 12 point system review were negative by me) Past Patient History - Infectious Disease Hx of Infectious Diseases: None - Tetanus Immunizations Tetanus Immunization: Unknown - Past Medical History & Family History Past Medical History?: Yes - Past Social History Smoking Status: Former Smoker Chewing Tobacco Use: No Cigar Use: No Alcohol: None Drugs: Denies Home Situation {Lives}: With Family - CARDIAC Hx Cardiac Disorders: No - PULMONARY Hx Respiratory Disorders: No - NEUROLOGICAL Hx Neurological Disorder: No - HEENT Hx HEENT Problems: No - RENAL Hx Chronic Kidney Disease: No - ENDOCRINE/METABOLIC Hx Endocrine Disorders: No - HEMATOLOGICAL/ONCOLOGICAL Hx Blood Disorders: No Hx Blood Transfusion Reaction: No - INTEGUMENTARY Hx Dermatological Problems: No - MUSCULOSKELETAL/RHEUMATOLOGICAL Hx Musculoskeletal Disorders: No Hx Arthritis: Yes Hx Degenerative Joint Disease: Yes Hx Falls: No Hx Herniated Disk: Yes (4) Hx Osteoarthritis: Yes Hx Spinal Stenosis: Yes - GASTROINTESTINAL Hx Gastrointestinal Disorders: Yes Hx Gastritis: Yes - GENITOURINARY/GYNECOLOGICAL Hx Genitourinary Disorders: No - PSYCHIATRIC Hx Psychophysiologic Disorder: No - SURGICAL HISTORY Hx Surgeries: Yes Other/Comment: epidural,ectopic . Rhip inj 04/2017 - ANESTHESIA Hx Anesthesia: Yes Hx Anesthesia Reactions: No Hx Malignant Hyperthermia: No Meds Allergies/Adverse Reactions: Allergies Allergy/AdvReac Type Severity Reaction Status Date / Time No Known Allergies Allergy Verified 06/25/17 17:59 Physical Exam - Constitutional Appears: No Acute Distress - Head Exam Head Exam: ATRAUMATIC - Eye Exam Eye Exam: absent: Scleral icterus - ENT Exam ENT Exam: Mucous Membranes Moist - Neck Exam Neck exam: Negative for: Meningismus - Respiratory Exam Respiratory Exam: absent: Rales, Rhonchi, Wheezes, Respiratory Distress - Cardiovascular Exam Cardiovascular Exam: REGULAR RHYTHM, +S1, +S2 - GI/Abdominal Exam GI & Abdominal Exam: Soft. absent: Tenderness - Rectal Exam Rectal Exam: Deferred - Extremities Exam Extremities exam: Negative for: full ROM (limitation of ROM on right hip) - Back Exam Back exam: NORMAL INSPECTION - Neurological Exam Neurological exam: Alert, Oriented x3 - Psychiatric Exam Psychiatric exam: Normal Affect - Skin Skin Exam: Dry, Intact Results - Vital Signs Recent Vital Signs: Last Vital Signs Temp 98.1 F 06/26/17 08:13 Pulse 99 H 06/26/17 08:13 Resp 20 06/26/17 08:13 BP 129/64 06/26/17 08:13 Pulse Ox 85 L 06/26/17 08:13 Assessment & Plan - Assessment and Plan (Free Text) Assessment: 51 yo female with no significant PMH aside fro OA had right THR on 06/23/2017 after failing conservative management. Patient did well post op and was transferred to TCU for continuation of rehabilitation. 1. Primary Osteoarthritis of Right Hip s/p THR pain tolerable and relieved with Percocet Post op Day # 3 continue ortho consult with Dr Rao continue PT/OT 2. Morbid obesity with BMI of 40.0-44.9, adult 3. UTI (urinary tract infection) Resolved completed 1 week antibiotic treatment (Cipro) for UTI 4. DVT prophylaxis Lovenox
[2017-06-27] MEDS: Enoxaparin 40 mg Syringe SC SCH (08:44)
--- NOTE | 2017-06-27 10:58 | CP.PCM.CON ---
History of Present Illness - History of Present Illness History of Present Illness: 51 year old female admitted to TCU after undergoing surgery for right total hip replacement by Dr Rao with history of advanced OA Review of Systems - Musculoskeletal Musculoskeletal: Abnormal Gait, Limited Range of Motion, Muscle Weakness Past Patient History - Infectious Disease Hx of Infectious Diseases: None - Tetanus Immunizations Tetanus Immunization: Unknown - Past Medical History & Family History Past Medical History?: Yes - Past Social History Smoking Status: Former Smoker Chewing Tobacco Use: No Cigar Use: No Alcohol: None Drugs: Denies Home Situation {Lives}: With Family - CARDIAC Hx Cardiac Disorders: No - PULMONARY Hx Respiratory Disorders: No - NEUROLOGICAL Hx Neurological Disorder: No - HEENT Hx HEENT Problems: No - RENAL Hx Chronic Kidney Disease: No - ENDOCRINE/METABOLIC Hx Endocrine Disorders: No - HEMATOLOGICAL/ONCOLOGICAL Hx Blood Disorders: No Hx Blood Transfusion Reaction: No - INTEGUMENTARY Hx Dermatological Problems: No - MUSCULOSKELETAL/RHEUMATOLOGICAL Hx Musculoskeletal Disorders: No Hx Arthritis: Yes Hx Degenerative Joint Disease: Yes Hx Falls: No Hx Herniated Disk: Yes (4) Hx Osteoarthritis: Yes Hx Spinal Stenosis: Yes - GASTROINTESTINAL Hx Gastrointestinal Disorders: Yes Hx Gastritis: Yes - GENITOURINARY/GYNECOLOGICAL Hx Genitourinary Disorders: No - PSYCHIATRIC Hx Psychophysiologic Disorder: No - SURGICAL HISTORY Hx Surgeries: Yes Other/Comment: epidural,ectopic . Rhip inj 04/2017 - ANESTHESIA Hx Anesthesia: Yes Hx Anesthesia Reactions: No Hx Malignant Hyperthermia: No Meds Allergies/Adverse Reactions: Allergies Allergy/AdvReac Type Severity Reaction Status Date / Time No Known Allergies Allergy Verified 06/25/17 17:59 - Medications Medications: Current Medications Acetaminophen (Tylenol 325mg Tab) 650 mg PO Q4 PRN PRN Reason: Fever >100.4 F Artificial Tears (Artificial Tears) 2 drop OU Q4 PRN PRN Reason: Dry eyes Docusate Sodium (Colace) 100 mg PO BID [facility] Last Admin: 06/27/17 08:42 Dose: 100 mg Enoxaparin Sodium (Lovenox) 40 mg SC DAILY [facility] PRN Reason: Protocol Last Admin: 06/27/17 08:44 Dose: 40 mg Lactulose (Enulose) 20 gm PO DAILY PRN PRN Reason: Constipation Ondansetron HCl (Zofran Inj) 4 mg IVP Q4 PRN PRN Reason: Nausea/Vomiting Last Admin: 06/26/17 18:27 Dose: 4 mg Oxycodone HCl (Oxycodone Immediate Release Tab) 5 mg PO Q4 PRN PRN Reason: Pain, moderate (4-7) Last Admin: 06/26/17 23:55 Dose: 5 mg Physical Exam - Head Exam Head Exam: ATRAUMATIC, NORMAL INSPECTION, NORMOCEPHALIC - Eye Exam Eye Exam: EOMI, Normal appearance Pupil Exam: NORMAL ACCOMODATION, PERRL - ENT Exam ENT Exam: Mucous Membranes Moist, Normal Exam - Neck Exam Neck exam: Positive for: Normal Inspection - Respiratory Exam Respiratory Exam: Clear to Auscultation Bilateral - Cardiovascular Exam Cardiovascular Exam: REGULAR RHYTHM - GI/Abdominal Exam GI & Abdominal Exam: Normal Bowel Sounds - Rectal Exam Rectal Exam: NORMAL INSPECTION - Exam External exam: NORMAL EXTERNAL EXAM - Extremities Exam Extremities exam: Positive for: normal inspection Additional comments: right leg weakness - Back Exam Back exam: NORMAL INSPECTION - Neurological Exam Neurological exam: Alert, CN II-XII Intact Results - Vital Signs Recent Vital Signs: Last Vital Signs Temp 98.6 F 06/27/17 10:00 Pulse 98 H 06/27/17 10:00 Resp 18 06/27/17 10:00 BP 132/77 06/27/17 10:00 Pulse Ox 97 06/27/17 10:00 Assessment & Plan (1) DVT prophylaxis Status: Acute (2) Primary osteoarthritis of right hip Status: Acute (3) Morbid obesity with BMI of 40.0-44.9, adult Status: Chronic (4) UTI (urinary tract infection) Status: Resolved (5) Aftercare following right hip joint replacement surgery Assessment and Plan: plan for physical, occupational therapy for range of motion, strengthening, transfers and gait training. Monitor skin and pain management Status: Acute
[2017-06-27] MEDS: oxyCODONE 5 mg Immediate Release Tab PO PRN (22:06)
[2017-06-28] MEDS: oxyCODONE 5 mg Immediate Release Tab PO PRN ×3 (08:02→21:57)
[2017-06-28] MEDS: Enoxaparin 40 mg Syringe SC SCH (08:03)
--- NOTE | 2017-06-28 08:54 | CP.PCM.PN ---
Subjective - Date & Time of Evaluation Date of Evaluation: 06/28/17 Time of Evaluation: 08:00 - Subjective Subjective: Patient seen and examined OOB to chair comfortable. Patient is tolerating PT well ambulating with walker. No new complaints. Objective - Vital Signs/Intake and Output Vital Signs (last 24 hours): Temp Pulse Resp BP Pulse Ox 99.0 F 90 18 115/51 L 97 06/28/17 07:51 06/28/17 07:51 06/28/17 07:51 06/28/17 07:51 06/28/17 07:51 - Medications Medications: Current Medications Acetaminophen (Tylenol 325mg Tab) 650 mg PO Q4 PRN PRN Reason: Fever >100.4 F Artificial Tears (Artificial Tears) 2 drop OU Q4 PRN PRN Reason: Dry eyes Docusate Sodium (Colace) 100 mg PO BID [facility] Last Admin: 06/28/17 08:03 Dose: 100 mg Enoxaparin Sodium (Lovenox) 40 mg SC DAILY [facility] PRN Reason: Protocol Last Admin: 06/28/17 08:03 Dose: 40 mg Lactulose (Enulose) 20 gm PO DAILY PRN PRN Reason: Constipation Last Admin: 06/27/17 11:03 Dose: 20 gm Ondansetron HCl (Zofran Inj) 4 mg IVP Q4 PRN PRN Reason: Nausea/Vomiting Last Admin: 06/26/17 18:27 Dose: 4 mg Oxycodone HCl (Oxycodone Immediate Release Tab) 5 mg PO Q4 PRN PRN Reason: Pain, moderate (4-7) Last Admin: 06/28/17 08:02 Dose: 5 mg - Extremities Exam Additional comments: R hip: CAROLINA dressing with 30% serous saturation. mild swelling and tenderness. Dressing taken down revealing wound intact with katia, no drainage sensation intact SP/DP/TN motor intact EHL/FHL/TA/G/Q/HS pedal pulses intact comp soft NT Assessment and Plan (1) Primary osteoarthritis of right hip Assessment & Plan: Patient is POD# 5 s/p R DEBBIE -CAROLINA dressings changed -pain control -DVT ppx -PT/OT cont TTWB -orthopedically stable -above d/w Dr. Rao in agreement Status: Acute
[2017-06-28 09:01] LABS: MEAN CORPUSCULAR HEMOGLOBIN 33.4 pg (27.0-31.0); MEAN CORPUSCULAR HGB CONC 34.1 g/dL (33.0-37.0); RBC 2.68 Mil/uL (3.80-5.20); RED CELL DISTRIBUTION WIDTH 13.6 % (11.5-14.5); WHITE BLOOD COUNT 8.1 K/uL (4.8-10.8)
[2017-06-28] MEDS: Cholecalciferol 1,000 INTLU TAB PO SCH (10:26)
[2017-06-29] MEDS: oxyCODONE 5 mg Immediate Release Tab PO PRN ×3 (02:17→21:29)
[2017-06-29] MEDS: Cholecalciferol 1,000 INTLU TAB PO SCH (08:04)
[2017-06-29] MEDS: Enoxaparin 40 mg Syringe SC SCH (08:04)
--- NOTE | 2017-06-29 14:38 | CP.PCM.PN ---
Subjective - Date & Time of Evaluation Date of Evaluation: 06/29/17 Time of Evaluation: 12:00 - Subjective Subjective: no acute complaints of leg discomfort Objective - Vital Signs/Intake and Output Vital Signs (last 24 hours): Temp Pulse Resp BP Pulse Ox 98.2 F 79 20 110/67 94 L 06/29/17 08:19 06/29/17 08:19 06/29/17 08:19 06/29/17 08:19 06/29/17 08:19 - Medications Medications: Current Medications Acetaminophen (Tylenol 325mg Tab) 650 mg PO Q4 PRN PRN Reason: Pain, Mild (1-3) Last Admin: 06/29/17 12:00 Dose: 650 mg Artificial Tears (Artificial Tears) 2 drop OU Q4 PRN PRN Reason: Dry eyes Cholecalciferol (Vitamin D) 2,000 intlu PO DAILY [facility] Last Admin: 06/29/17 08:04 Dose: 2,000 intlu Docusate Sodium (Colace) 100 mg PO BID [facility] Last Admin: 06/29/17 08:04 Dose: 100 mg Enoxaparin Sodium (Lovenox) 40 mg SC DAILY [facility] PRN Reason: Protocol Last Admin: 06/29/17 08:04 Dose: 40 mg Lactulose (Enulose) 20 gm PO DAILY PRN PRN Reason: Constipation Last Admin: 06/27/17 11:03 Dose: 20 gm Ondansetron HCl (Zofran Odt) 4 mg PO Q8H PRN PRN Reason: Nausea/Vomiting Oxycodone HCl (Oxycodone Immediate Release Tab) 5 mg PO Q4 PRN PRN Reason: Pain, moderate (4-7) Last Admin: 06/29/17 08:03 Dose: 5 mg - Labs Labs: 06/28/17 08:45 - Head Exam Head Exam: ATRAUMATIC, NORMAL INSPECTION, NORMOCEPHALIC - Eye Exam Eye Exam: EOMI, Normal appearance, PERRL Pupil Exam: NORMAL ACCOMODATION - ENT Exam ENT Exam: Mucous Membranes Moist, Normal Exam - Neck Exam Neck Exam: Normal Inspection - Respiratory Exam Respiratory Exam: Clear to Ausculation Bilateral, NORMAL BREATHING PATTERN - Cardiovascular Exam Cardiovascular Exam: REGULAR RHYTHM - GI/Abdominal Exam GI & Abdominal Exam: Soft, Normal Bowel Sounds - Rectal Exam Rectal Exam: NORMAL INSPECTION - Exam External exam: NORMAL EXTERNAL EXAM - Extremities Exam Extremities Exam: Full ROM, Normal Capillary Refill, Normal Inspection - Back Exam Back Exam: NORMAL INSPECTION - Neurological Exam Neurological Exam: Alert, Awake, CN II-XII Intact Neuro motor strength exam: Left Upper Extremity: 4, Right Upper Extremity: 4, Left Lower Extremity: 4, Right Lower Extremity: 3 - Psychiatric Exam Psychiatric exam: Normal Affect, Normal Mood - Skin Skin Exam: Dry, Intact Assessment and Plan (1) DVT prophylaxis Status: Acute (2) Primary osteoarthritis of right hip Status: Acute (3) Morbid obesity with BMI of 40.0-44.9, adult Status: Chronic (4) Aftercare following right hip joint replacement surgery Assessment & Plan: plan to continue with physical, occuaptional therapy program Status: Acute
--- NOTE | 2017-06-29 15:04 | CP.PCM.PN ---
Subjective - Date & Time of Evaluation Date of Evaluation: 06/29/17 Time of Evaluation: 13:00 - Subjective Subjective: Patient was seen and examined during her physical therapy. She has no new complaints. States that she continues to have a burning pain at the location of her right hip but it is well controlled with pain medications. Tolerating therapies well. Objective - Vital Signs/Intake and Output Vital Signs (last 24 hours): Temp Pulse Resp BP Pulse Ox 98.2 F 79 20 110/67 94 L 06/29/17 08:19 06/29/17 08:19 06/29/17 08:19 06/29/17 08:19 06/29/17 08:19 - Medications Medications: Current Medications Acetaminophen (Tylenol 325mg Tab) 650 mg PO Q4 PRN PRN Reason: Pain, Mild (1-3) Last Admin: 06/29/17 12:00 Dose: 650 mg Artificial Tears (Artificial Tears) 2 drop OU Q4 PRN PRN Reason: Dry eyes Cholecalciferol (Vitamin D) 2,000 intlu PO DAILY [facility] Last Admin: 06/29/17 08:04 Dose: 2,000 intlu Docusate Sodium (Colace) 100 mg PO BID [facility] Last Admin: 06/29/17 08:04 Dose: 100 mg Enoxaparin Sodium (Lovenox) 40 mg SC DAILY [facility] PRN Reason: Protocol Last Admin: 06/29/17 08:04 Dose: 40 mg Lactulose (Enulose) 20 gm PO DAILY PRN PRN Reason: Constipation Last Admin: 06/27/17 11:03 Dose: 20 gm Ondansetron HCl (Zofran Odt) 4 mg PO Q8H PRN PRN Reason: Nausea/Vomiting Oxycodone HCl (Oxycodone Immediate Release Tab) 5 mg PO Q4 PRN PRN Reason: Pain, moderate (4-7) Last Admin: 06/29/17 08:03 Dose: 5 mg - Labs Labs: 06/28/17 08:45 - Additional Findings Additional findings: Physical exam: Constitutional- cooperative, awake, alert Head- NCAT, PERRL Eye- PERRL, EOMI ENT- normal exam, MMM. Neck- normal inspection, supple, no JVD Respiratory- CTAB, no wheezes rales rhonchi Cardiovascular- RRR, +S1, +S2 no MRG GI/Abdominal- normal bowel sounds, soft, no mass, no hsm Skin- warm, dry Extremities Exam- normal capillary refill. + Decreased ROM right hip Neurological Exam- alert, awake, oriented Psych- normal mood, normal affect Assessment and Plan - Assessment and Plan (Free Text) Plan: 51 yo female with no significant PMH aside fro OA had right THR on 06/23/2017 after failing conservative management. Patient did well post op and was transferred to TCU for continuation of rehabilitation. 1. Primary Osteoarthritis of Right Hip s/p THR pain tolerable and relieved with Percocet. Ambulating with walker Post op Day # 6 continue ortho consult with Dr Rao continue PT/OT 2. Morbid obesity with BMI of 40.0-44.9, adult - chronic 3. UTI (urinary tract infection) Resolved completed 1 week antibiotic treatment (Cipro) for UTI 4. DVT prophylaxis Lovenox
[2017-06-30] MEDS: oxyCODONE 5 mg Immediate Release Tab PO PRN ×4 (01:31→23:56)
[2017-06-30] MEDS: Enoxaparin 40 mg Syringe SC SCH (08:04)
[2017-06-30] MEDS: Cholecalciferol 1,000 INTLU TAB PO SCH (08:04)
--- NOTE | 2017-06-30 15:10 | PN ---
DATE: 06/30/2017 PHYSIATRY PROGRESS NOTE SUBJECTIVE: The patient is a 51-year-old female that underwent right hip surgery secondary to severe osteoarthritis that was not controlled with conservative treatment. The patient is toe-touch weightbearing. Continue with pain management, and dressing changes. PHYSICAL EXAMINATION: VITAL SIGNS: Stable. NECK: Supple. CHEST: Symmetrical. HEART: S1 and S2. GASTROINTESTINAL: Abdominal area benign. EXTREMITIES: No clubbing, cyanosis, or edema. IMPRESSION AND PLAN: Right total hip arthroplasty, status post osteoarthritis of the right hip. Continue with physical and occupational therapy program. Continue with weight precautions of toe-touch weightbearing. Continue with dressing changing and pain management. Kenny Cortes MD
[2017-07-01] MEDS: Enoxaparin 40 mg Syringe SC SCH (08:00)
[2017-07-01] MEDS: Cholecalciferol 1,000 INTLU TAB PO SCH (08:00)
--- NOTE | 2017-07-01 14:28 | CP.PCM.PN ---
Subjective - Date & Time of Evaluation Date of Evaluation: 07/01/17 Time of Evaluation: 09:00 - Subjective Subjective: Patient seen and examined OOB to chair. Pain well controlled. Tolerating PT well. No new complaints. Objective - Vital Signs/Intake and Output Vital Signs (last 24 hours): Temp Pulse Resp BP Pulse Ox 98.2 F 86 18 144/78 99 07/01/17 07:50 07/01/17 07:50 07/01/17 07:50 07/01/17 07:50 07/01/17 07:50 - Medications Medications: Current Medications Acetaminophen (Tylenol 325mg Tab) 650 mg PO Q4 PRN PRN Reason: Pain, Mild (1-3) Last Admin: 07/01/17 08:01 Dose: 650 mg Artificial Tears (Artificial Tears) 2 drop OU Q4 PRN PRN Reason: Dry eyes Cholecalciferol (Vitamin D) 2,000 intlu PO DAILY [facility] Last Admin: 07/01/17 08:00 Dose: 2,000 intlu Docusate Sodium (Colace) 100 mg PO BID [facility] Last Admin: 07/01/17 08:00 Dose: 100 mg Enoxaparin Sodium (Lovenox) 40 mg SC DAILY [facility] PRN Reason: Protocol Last Admin: 07/01/17 08:00 Dose: 40 mg Lactulose (Enulose) 20 gm PO DAILY PRN PRN Reason: Constipation Last Admin: 06/27/17 11:03 Dose: 20 gm Ondansetron HCl (Zofran Odt) 4 mg PO Q8H PRN PRN Reason: Nausea/Vomiting Oxycodone HCl (Oxycodone Immediate Release Tab) 5 mg PO Q4 PRN PRN Reason: Pain, moderate (4-7) Last Admin: 06/30/17 23:56 Dose: 5 mg - Labs Labs: 06/28/17 08:45 - Extremities Exam Additional comments: R hip: CAROLINA dressing CDI. mild swelling and tenderness. Dressing taken down revealing wound intact with katia, no drainage sensation intact SP/DP/TN motor intact EHL/FHL/TA/G/Q/HS pedal pulses intact comp soft NT Assessment and Plan (1) Primary osteoarthritis of right hip Assessment & Plan: Patient is POD# 8 s/p R DEBBIE -CAROLINA dressings removed, dry dressing applied -pain control -DVT ppx -PT/OT foot flat 10% WB -orthopedically stable for discharge -f/u with Dr. Rao in office in 7-10 days -above d/w Dr. Rao in agreement Status: Acute
[2017-07-01 16:42] VITALS: RESP 20
[2017-07-01 21:29] VITALS: PULSE 85
[2017-07-01] MEDS: oxyCODONE 5 mg Immediate Release Tab PO PRN (21:40)
[2017-07-02] MEDS: Enoxaparin 40 mg Syringe SC SCH (08:52)
[2017-07-02] MEDS: Cholecalciferol 1,000 INTLU TAB PO SCH (08:52)
[2017-07-02] MEDS: oxyCODONE 5 mg Immediate Release Tab PO PRN (08:56)
[2017-07-02 10:49] VITALS: BP 131/68; TEMP 98.1; O2SAT 100
--- NOTE | 2017-07-02 10:49 | CP.PCM.DIS ---
Provider - Provider Date of Admission: 06/25/17 17:46 Attending physician: Anjel Laguna DO Primary care physician: Mati Rao III, MD Consults: 06/25/17 18:02 Case Management Referral Routine Comment: Physician Instructions: Reason For Exam: Reason for Referral: Discharge Planning Time Spent in preparation of Discharge (in minutes): 25 Diagnosis - Discharge Diagnosis (1) Primary osteoarthritis of right hip Status: Chronic Comment: Had right THR on 06/23/2017. did well with rehab. follow up with Dr Rao. continue PT as outpatient. continue pain management as needed Hospital Course - Lab Results Lab Results: Most Recent Lab Values WBC 8.1 K/uL (4.8-10.8) 06/28/17 08:45 RBC 2.68 Mil/uL (3.80-5.20) L 06/28/17 08:45 Hgb 9.0 g/dL (12.0-16.0) L 06/28/17 08:45 Hct 26.3 % (34.0-47.0) L 06/28/17 08:45 MCV 98.0 fl (81.0-99.0) 06/28/17 08:45 MCH 33.4 pg (27.0-31.0) H 06/28/17 08:45 MCHC 34.1 g/dL (33.0-37.0) 06/28/17 08:45 RDW 13.6 % (11.5-14.5) 06/28/17 08:45 Plt Count 266 K/uL (130-400) 06/28/17 08:45 - Hospital Course Hospital Course: 51 yo female with no significant PMH aside from OA had right THR on 06/23/2017 after failing conservative management. Post op course was uneventful and patient was transferred to TCU for rehabilitation. She did well and now is ready for discharge. Discharge Exam - Head Exam Head Exam: ATRAUMATIC, NORMAL INSPECTION, NORMOCEPHALIC - Eye Exam Eye Exam: absent: Scleral icterus - ENT Exam ENT Exam: Mucous Membranes Moist - Respiratory Exam Respiratory Exam: absent: Rales, Rhonchi, Wheezes, Respiratory Distress - Cardiovascular Exam Cardiovascular Exam: REGULAR RHYTHM, +S1, +S2 - GI/Abdominal Exam GI & Abdominal Exam: Soft. absent: Tenderness - Rectal Exam Rectal Exam: Deferred - Neurological Exam Neurological exam: Alert, Oriented x3 - Psychiatric Exam Psychiatric exam: Normal Affect - Skin Skin Exam: Dry, Intact Discharge Plan - Discharge Medications Prescriptions: oxyCODONE [oxyCODONE Immediate Release Tab] 5 mg PO Q4 PRN #20 tab PRN Reason: Pain, Moderate (4-7) - Follow Up Plan Condition: GOOD Disposition: HOME/ ROUTINE Instructions: Total Hip Replacement, Preventing Falls Additional Instructions: followup with Orthopedic MD Dr. Mati Rao, appointment for July 09, 1:00pm. Referrals: Mati Rao III, MD [Primary Care Provider] -
--- NOTE | 2017-07-02 14:14 | CP.PCM.PN ---
Subjective - Date & Time of Evaluation Date of Evaluation: 07/02/17 Time of Evaluation: 12:30 - Subjective Subjective: no acute complaints at present Objective - Vital Signs/Intake and Output Vital Signs (last 24 hours): Temp Pulse Resp BP Pulse Ox 98.1 F 85 20 131/68 100 07/02/17 08:00 07/02/17 08:00 07/02/17 08:00 07/02/17 08:00 07/02/17 08:00 - Medications Medications: Current Medications Acetaminophen (Tylenol 325mg Tab) 650 mg PO Q4 PRN PRN Reason: Pain, Mild (1-3) Last Admin: 07/01/17 17:53 Dose: 650 mg Artificial Tears (Artificial Tears) 2 drop OU Q4 PRN PRN Reason: Dry eyes Cholecalciferol (Vitamin D) 2,000 intlu PO DAILY [facility] Last Admin: 07/02/17 08:52 Dose: 2,000 intlu Docusate Sodium (Colace) 100 mg PO BID [facility] Last Admin: 07/02/17 08:52 Dose: 100 mg Enoxaparin Sodium (Lovenox) 40 mg SC DAILY [facility] PRN Reason: Protocol Last Admin: 07/02/17 08:52 Dose: 40 mg Lactulose (Enulose) 20 gm PO DAILY PRN PRN Reason: Constipation Last Admin: 06/27/17 11:03 Dose: 20 gm Ondansetron HCl (Zofran Odt) 4 mg PO Q8H PRN PRN Reason: Nausea/Vomiting Oxycodone HCl (Oxycodone Immediate Release Tab) 5 mg PO Q4 PRN PRN Reason: Pain, moderate (4-7) Last Admin: 07/02/17 08:56 Dose: 5 mg - Labs Labs: 06/28/17 08:45 - Head Exam Head Exam: ATRAUMATIC, NORMAL INSPECTION, NORMOCEPHALIC - Eye Exam Eye Exam: EOMI, Normal appearance, PERRL Pupil Exam: NORMAL ACCOMODATION - ENT Exam ENT Exam: Mucous Membranes Moist, Normal Exam - Neck Exam Neck Exam: Full ROM, Normal Inspection - Respiratory Exam Respiratory Exam: Clear to Ausculation Bilateral, NORMAL BREATHING PATTERN - Cardiovascular Exam Cardiovascular Exam: REGULAR RHYTHM - GI/Abdominal Exam GI & Abdominal Exam: Soft, Normal Bowel Sounds - Rectal Exam Rectal Exam: NORMAL INSPECTION - Exam External exam: NORMAL EXTERNAL EXAM - Extremities Exam Extremities Exam: Full ROM, Normal Capillary Refill, Normal Inspection - Back Exam Back Exam: NORMAL INSPECTION - Psychiatric Exam Psychiatric exam: Normal Affect, Normal Mood - Skin Skin Exam: Dry, Intact Assessment and Plan (1) DVT prophylaxis Status: Acute (2) Primary osteoarthritis of right hip Status: Chronic (3) Morbid obesity with BMI of 40.0-44.9, adult Status: Chronic (4) Aftercare following right hip joint replacement surgery Assessment & Plan: plan for Pt, ot therapy for Dc planning Status: Acute
== END 2017-07-02 15:45 | disposition home or self-care (01) | DRG 560 ==
LOC: H.TCU 17:46
PROVIDERS: ADMIT Internal Medicine; ATTEND Internal Medicine
PROC: F07Z9FZ Gait Training/Functional Ambulation Treatment using Assistive, Adaptive, Supportive or Protective Equipment (ICD-10-PCS; principal; 2017-06-25)
PROC: F08Z4FZ Home Management Treatment using Assistive, Adaptive, Supportive or Protective Equipment (ICD-10-PCS; 2017-06-25)
PROC: F07L6FZ Therapeutic Exercise Treatment of Musculoskeletal System - Lower Back / Lower Extremity using Assistive, Adaptive, Supportive or Protective Equipment (ICD-10-PCS; 2017-06-25)
DX: Z47.1 Aftercare following joint replacement surgery (principal); Z96.641 Presence of right artificial hip joint; Z68.41 Body mass index [BMI] 40.0-44.9, adult; M16.11 Unilateral primary osteoarthritis, right hip; E66.01 Morbid (severe) obesity due to excess calories; K29.70 Gastritis, unspecified, without bleeding; Z87.891 Personal history of nicotine dependence; Z87.440 Personal history of urinary (tract) infections